=== PATIENT | male | born 1975 | race Caucasian/White ===

== ENCOUNTER 2021-01-17 21:32 | Emergency (ER) | payer MEDICAID ==
[~2021-01-17] VITALS: Ht 165.1 cm; Wt 60.0 kg
[2021-01-17] MEDS ORDERED: LORAZEPAM 1MG TABLET PO ONE (22:30)
[2021-01-17] MEDS ORDERED: LORA-250 MT (22:45)
[2021-01-17 23:22] VITALS: BP 150/95
== END 2021-01-18 00:35 | disposition home or self-care (01) ==
LOC: ER 21:32
DX: F41.9 Anxiety disorder, unspecified (principal); F15.10 Other stimulant abuse, uncomplicated
CPT/HCPCS: 99283